=== PATIENT | male | born 1945 | race Caucasian/White ===

== ENCOUNTER 2025-03-14 10:13 | Inpatient (IN) | payer MEDICARE, OTHER ==
[~2025-03-14] VITALS: Ht 175.3 cm; Wt 57.7 kg
[2025-03-14] MEDS: PANTOPRAZOLE 40MG VIAL IV ONE (10:42)
[2025-03-14] MEDS: NS 500 ML IV ONE (10:42)
[2025-03-14 10:55] LABS: BASO # 0.0 10^3/uL (0.0-0.2); BASO % 0.1 % (0.0-1.0); EOS # 0.1 10^3/uL (0.0-0.5); EOS % 0.3 % (0.0-3.0); LYMPH # 1.9 10^3/uL (1.5-5.0); LYMPH % 6.7 % (24.0-44.0); MONO # 1.2 10^3/uL (0.0-0.8); MONO % 4.2 % (2.0-8.0); NEUTROPHILS # 25.0 10^3/uL (1.5-8.5); NEUTROPHILS % 87.8 % (36.0-66.0); PLATELET COUNT, AUTOMATED 385 10^3/uL (150-450)
[2025-03-14 11:14] LABS: ETHYL ALCOHOL (ETHANOL) 0.003 % (0.000-0.010)
[2025-03-14 11:15] LABS: ALT/SGPT 39.0 U/L (7.0-40); AST/SGOT 28.0 U/L (<34); CALCIUM LEVEL 9.6 MG/DL (8.3-10.6); CARBON DIOXIDE LEVEL 19.0 MMOL/L (20-31); CHLORIDE LEVEL 100.0 MMOL/L (98-107); CREATININE FOR GFR 1.88 MG/DL (0.70-1.30); GLOMERULAR FILTRATION RATE 35.9 (>42); POTASSIUM SERUM 5.4 MMOL/L (3.5-5.1); SODIUM LEVEL 133.0 MMOL/L (136-145)
[2025-03-14] MEDS: THIAMINE 100 MG TAB PO SCH (11:26)
[2025-03-14] MEDS: MULTIVITAMINS/MINERALS THERAP 1 TAB PO SCH (11:26)
[2025-03-14] MEDS: FOLIC ACID 1 MG TAB PO SCH (11:26)
[2025-03-14] MEDS ORDERED: ATOR40TA75 PO (11:36)
[2025-03-14] MEDS ORDERED: LEVE750T5 PO (11:36)
[2025-03-14] MEDS ORDERED: AMLO1TAB24 PO (11:36)
[2025-03-14] MEDS ORDERED: HOME MED LIST COMPLETE! XX SCH (11:40)
[2025-03-14] MEDS ORDERED: ISOVUE-370 76% 100 ML VIAL As Ordered ONE (11:43)
[2025-03-14 11:46] LABS: INR 1.06
[2025-03-14] MEDS: cefTRIAXone SOD 2 GM in DEXTROSE 5% (D5W) ADV/MINI-BAG 50 ML IV ONE (12:02)
[2025-03-14] MEDS: LIDOCAINE 2% 5 ML JELLY UROJET TOP ONE (12:10)
[2025-03-14 12:59] LABS: KETONE, URINE AUTO RFX NEGATIVE (NEGATIVE); MUCUS, URINE RFX SMALL (NEGATIVE); NITRITE, URINE AUTO RFX NEGATIVE (NEGATIVE); RBC, URINE AUTO RFX TNTC /HPF (0-3); SQUAM EPITHELIAL CELL UR AURFX 0 /HPF (0-6); URIC ACID CRYSTALS RFX SMALL
[2025-03-14 14:38] LABS: LEUKOCYTE ESTERASE UR AUTO RFX 2+ (NEGATIVE); WBC, URINE AUTO RFX 143 /HPF (0-3)
[2025-03-14] MEDS: NS (Normal Saline) 0.9% 1,000 ML IV SCH (15:12)
[2025-03-14] MEDS ORDERED: LIDOCAINE 2% 100 MG/5 ML SDV (FOR ANES.) As Ordered ONE (15:57)
[2025-03-14] MEDS ORDERED: SUCCINYLCHOLINE 100MG/5ML SYRINGE As Ordered ONE (15:58)
[2025-03-14] MEDS ORDERED: dexAMETHasone 4 MG/ML 1 ML VIAL As Ordered ONE (16:43)
[2025-03-14] MEDS ORDERED: ONDANSETRON 4MG/2ML VIAL As Ordered ONE (16:43)
[2025-03-14 20:23] VITALS: BP 134/66; TEMP 98.2; O2SAT 97
[2025-03-14] MEDS: PANTOPRAZOLE 40MG VIAL IV SCH (20:41)
[2025-03-14 21:00] VITALS: BP 124/54; TEMP 97.8; O2SAT 93
[2025-03-14] MEDS ORDERED: THIAMINE 100 MG TAB PO SCH (21:00)
[2025-03-14 21:15] LABS: PLATELET COUNT, AUTOMATED 307 10^3/uL (150-450)
[2025-03-14 21:30] VITALS: BP 128/60; TEMP 97; O2SAT 94
[2025-03-14 21:33] LABS: CALCIUM LEVEL 7.9 MG/DL (8.3-10.6); CARBON DIOXIDE LEVEL 16.0 MMOL/L (20-31); CHLORIDE LEVEL 110.0 MMOL/L (98-107); CREATININE FOR GFR 1.43 MG/DL (0.70-1.30); GLOMERULAR FILTRATION RATE 49.8 (>42); POTASSIUM SERUM 5.2 MMOL/L (3.5-5.1); SODIUM LEVEL 139.0 MMOL/L (136-145)
[2025-03-14 22:30] VITALS: BP 154/60; TEMP 97.8; O2SAT 94
[2025-03-14 23:30] VITALS: BP 126/76; TEMP 97.6; O2SAT 93
[2025-03-15] VITALS (8 sets, daily range): BP systolic 130–167; BP diastolic 60–75; TEMP 97.8–99.4; O2SAT 90–94
[2025-03-15 05:51] LABS: PLATELET COUNT, AUTOMATED 290 10^3/uL (150-450)
[2025-03-15 06:16] LABS: ALT/SGPT 26.0 U/L (7.0-40); AST/SGOT 20.0 U/L (<34); CALCIUM LEVEL 8.2 MG/DL (8.3-10.6); CARBON DIOXIDE LEVEL 17.0 MMOL/L (20-31); CHLORIDE LEVEL 111.0 MMOL/L (98-107); CREATININE FOR GFR 1.42 MG/DL (0.70-1.30); GLOMERULAR FILTRATION RATE 50.3 (>42); POTASSIUM SERUM 4.8 MMOL/L (3.5-5.1); SODIUM LEVEL 139.0 MMOL/L (136-145)
[2025-03-15] MEDS: cefTRIAXone SOD 1 GM in DEXTROSE 5% (D5W) ADV/MINI-BAG 50 ML IV SCH (08:03)
[2025-03-15] MEDS: ATORVASTATIN 20 MG TAB PO SCH (08:03)
[2025-03-15] MEDS ORDERED: MULTIVITAMINS/MINERALS THERAP 1 TAB PO SCH (09:00)
[2025-03-15] MEDS ORDERED: FOLIC ACID 1 MG TAB PO SCH (09:00)
[2025-03-15] MEDS: TAMSULOSIN 0.4 MG CAP PO ONE (16:27)
[2025-03-16 04:28] VITALS: BP 135/68; TEMP 97.3; O2SAT 96
[2025-03-16 06:04] LABS: PLATELET COUNT, AUTOMATED 284 10^3/uL (150-450)
[2025-03-16 06:29] LABS: ALT/SGPT 28 U/L (7.0-40); AST/SGOT 40 U/L (<34); CALCIUM LEVEL 8.1 MG/DL (8.3-10.6); CARBON DIOXIDE LEVEL 20 MMOL/L (20-31); CHLORIDE LEVEL 117 MMOL/L (98-107); CREATININE FOR GFR 0.78 MG/DL (0.70-1.30); GLOMERULAR FILTRATION RATE > 90.0 (>42); POTASSIUM SERUM 3.4 MMOL/L (3.5-5.1); SODIUM LEVEL 149 MMOL/L (136-145)
[2025-03-16 06:56] LABS: MAGNESIUM LEVEL 2.1 MG/DL (1.8-2.4)
[2025-03-16] MEDS: POTASSIUM CHLORIDE 10% LIQ 20MEQ/15ML UDC PO ONE (07:05)
[2025-03-16 07:19] VITALS: BP 142/65; TEMP 98.2; O2SAT 94
[2025-03-16] MEDS: TAMSULOSIN 0.4 MG CAP PO SCH (08:03)
[2025-03-16] MEDS: ENOXAPARIN 40 MG/0.4 ML SYRINGE (J1650 PER 10MG) SC ONE (10:40)
[2025-03-16] MEDS: ASPIRIN 81 MG CHEWABLE TABLET PO ONE (10:40)
[2025-03-16] MEDS: POTASSIUM CHLORIDE 10MEQ SR TABLET PO ONE (10:41)
[2025-03-16 12:00] VITALS: BP 159/72; TEMP 98.1; O2SAT 96
[2025-03-16] MEDS ORDERED: IPRATROPIUM 0.5 MG/ALBUTEROL 2.5 MG INH SOL UD 3 ML NEB PRN (12:40)
[2025-03-16] MEDS: AZITHROMYCIN 250 MG TABLET PO SCH (13:26)
[2025-03-16 15:40] VITALS: BP 150/60; TEMP 99.1; O2SAT 91
[2025-03-16] MEDS: IPRATROPIUM 0.5 MG/ALBUTEROL 2.5 MG INH SOL UD 3 ML NEB SCH (15:47)
[2025-03-16] MEDS: SODIUM CHLORIDE HYPERTONIC 3% 4ML NEB SOL INH SCH (15:47)
[2025-03-16] MEDS: METOPROLOL TART 25 MG TABLET PO ONE (18:41)
[2025-03-16] MEDS: NS (Normal Saline) 0.9% 1,000 ML IV ONE (18:42)
[2025-03-16 18:59] LABS: CALCIUM LEVEL 7.9 MG/DL (8.3-10.6); CARBON DIOXIDE LEVEL 19 MMOL/L (20-31); CHLORIDE LEVEL 116 MMOL/L (98-107); CREATININE FOR GFR 0.73 MG/DL (0.70-1.30); GLOMERULAR FILTRATION RATE > 90.0 (>42); POTASSIUM SERUM 4.3 MMOL/L (3.5-5.1); SODIUM LEVEL 147 MMOL/L (136-145)
[2025-03-16 19:32] VITALS: BP 145/66; TEMP 98.5; O2SAT 96
[2025-03-16] MEDS: guaiFENesin ER TABLET 600 MG TAB PO SCH (20:28)
[2025-03-16 23:55] VITALS: BP 122/55; TEMP 98.6; O2SAT 90
[2025-03-17] VITALS (13 sets, daily range): BP systolic 111–149; BP diastolic 54–74; TEMP 97.9–99.9; O2SAT 90–96
[2025-03-17 07:27] LABS: PLATELET COUNT, AUTOMATED 294 10^3/uL (150-450)
[2025-03-17 07:52] LABS: ALT/SGPT 40 U/L (7.0-40); AST/SGOT 116 U/L (<34); CALCIUM LEVEL 7.4 MG/DL (8.3-10.6); CARBON DIOXIDE LEVEL 20 MMOL/L (20-31); CHLORIDE LEVEL 115 MMOL/L (98-107); CREATININE FOR GFR 0.64 MG/DL (0.70-1.30); GLOMERULAR FILTRATION RATE > 90.0 (>42); POTASSIUM SERUM 3.6 MMOL/L (3.5-5.1); SODIUM LEVEL 145 MMOL/L (136-145)
[2025-03-17] MEDS: ENOXAPARIN 40 MG/0.4 ML SYRINGE (J1650 PER 10MG) SC SCH (09:24)
[2025-03-17] MEDS: ASPIRIN 81 MG CHEWABLE TABLET PEG SCH (09:25)
[2025-03-17] MEDS: POTASSIUM CHLORIDE 10MEQ SR TABLET PO ONE (09:47)
[2025-03-17] MEDS: METOPROLOL TART 25 MG TABLET PO ONE (10:26)
[2025-03-17] MEDS: ACETAMINOPHEN 325 MG TAB PO PRN (14:36)
[2025-03-17] MEDS: FUROSEMIDE 20 MG/2 ML VIAL IV ONE (15:48)
[2025-03-17 16:04] LABS: BASO # 0.0 10^3/uL (0.0-0.2); BASO % 0.2 % (0.0-1.0); EOS # 0.1 10^3/uL (0.0-0.5); EOS % 1.0 % (0.0-3.0); LYMPH # 1.7 10^3/uL (1.5-5.0); LYMPH % 12.1 % (24.0-44.0); MONO # 1.0 10^3/uL (0.0-0.8); MONO % 7.2 % (2.0-8.0); NEUTROPHILS # 11.1 10^3/uL (1.5-8.5); NEUTROPHILS % 78.1 % (36.0-66.0); PLATELET COUNT, AUTOMATED 250 10^3/uL (150-450)
[2025-03-17] MEDS: MIRALAX *UNIT DOSE* 17 GM PACKET PO ONE (18:40)
[2025-03-17] MEDS: METOPROLOL TART 25 MG TABLET PO SCH (20:36)
[2025-03-18 03:51] VITALS: BP 152/72; TEMP 100; O2SAT 93
[2025-03-18 04:00] VITALS: TEMP 100.3
[2025-03-18 05:56] LABS: PLATELET COUNT, AUTOMATED 297 10^3/uL (150-450)
[2025-03-18 06:29] LABS: ALT/SGPT 50 U/L (7.0-40); AST/SGOT 153 U/L (<34); CALCIUM LEVEL 7.5 MG/DL (8.3-10.6); CARBON DIOXIDE LEVEL 22 MMOL/L (20-31); CHLORIDE LEVEL 111 MMOL/L (98-107); CREATININE FOR GFR 0.65 MG/DL (0.70-1.30); GLOMERULAR FILTRATION RATE > 90.0 (>42); POTASSIUM SERUM 3.4 MMOL/L (3.5-5.1); SODIUM LEVEL 145 MMOL/L (136-145)
[2025-03-18 08:07] VITALS: BP 146/74; TEMP 98.9; O2SAT 98
[2025-03-18] MEDS: POTASSIUM CHLORIDE 10MEQ SR TABLET PO ONE (08:33)
[2025-03-18 12:00] VITALS: BP 101/54; TEMP 98.1; O2SAT 96
[2025-03-18 16:44] VITALS: BP 158/70; TEMP 99; O2SAT 91
[2025-03-18] MEDS: SUCRALFATE SUSP 1GM/10ML UD PO SCH (17:47)
[2025-03-18 19:40] VITALS: BP 109/53; TEMP 98.8; O2SAT 90
[2025-03-19] VITALS (7 sets, daily range): BP systolic 117–150; BP diastolic 59–66; TEMP 98.3–100.2; O2SAT 90–94
[2025-03-19 06:22] LABS: ALT/SGPT 53 U/L (7.0-40); AST/SGOT 131 U/L (<34); CALCIUM LEVEL 7.8 MG/DL (8.3-10.6); CARBON DIOXIDE LEVEL 23 MMOL/L (20-31); CHLORIDE LEVEL 111 MMOL/L (98-107); CREATININE FOR GFR 0.65 MG/DL (0.70-1.30); GLOMERULAR FILTRATION RATE > 90.0 (>42); POTASSIUM SERUM 3.8 MMOL/L (3.5-5.1); SODIUM LEVEL 143 MMOL/L (136-145)
[2025-03-19 06:30] LABS: PLATELET COUNT, AUTOMATED 317 10^3/uL (150-450)
[2025-03-19] MEDS: AUGMENTIN 875 MG TAB PO SCH (09:51)
[2025-03-19] MEDS ORDERED: METO37.5 PO (23:09)
[2025-03-19] MEDS ORDERED: ENOX40IN3 SC (23:09)
[2025-03-19] MEDS ORDERED: PROT1TAB2 PO (23:09)
[2025-03-19] MEDS ORDERED: SUCR1ORA20 PO (23:09)
[2025-03-19] MEDS ORDERED: TAMS1CAP17 PO (23:09)
[2025-03-19] MEDS ORDERED: IPRA0.00 NEB (23:09)
[2025-03-19] MEDS ORDERED: ASPI81CH8 PEG (23:09)
[2025-03-19] MEDS ORDERED: AMOX875T2 PO (23:09)
[2025-03-19] MEDS ORDERED: ACET32TAB PO (23:09)
[2025-03-20 04:55] VITALS: BP 134/61; TEMP 98.5; O2SAT 90
[2025-03-20 05:07] LABS: PLATELET COUNT, AUTOMATED 346 10^3/uL (150-450)
[2025-03-20 05:26] LABS: ALT/SGPT 64 U/L (7.0-40); AST/SGOT 117 U/L (<34); CALCIUM LEVEL 7.8 MG/DL (8.3-10.6); CARBON DIOXIDE LEVEL 23 MMOL/L (20-31); CHLORIDE LEVEL 113 MMOL/L (98-107); CREATININE FOR GFR 0.63 MG/DL (0.70-1.30); GLOMERULAR FILTRATION RATE > 90.0 (>42); POTASSIUM SERUM 3.7 MMOL/L (3.5-5.1); SODIUM LEVEL 146 MMOL/L (136-145)
[2025-03-20 06:54] VITALS: BP 130/62; TEMP 98.9; O2SAT 90
[2025-03-20 08:45] VITALS: BP 136/67
[2025-03-20 08:52] VITALS: BP 133/60
[2025-03-20] MEDS: METOPROLOL TART 12.5 MG PER 1/2 TAB PO SCH (08:52)
== END 2025-03-20 11:12 | DRG 377 ==
LOC: EDBD 10:13 → M ED 10:13 → M ED INP 13:59 → M PCU 20:13
PROVIDERS: ADMIT Internal Medicine; ATTEND Internal Medicine
PROC: 0DB68ZX Excision of Stomach, Via Natural or Artificial Opening Endoscopic, Diagnostic (ICD-10-PCS; 2025-03-14)
PROC: 0W3P8ZZ Control Bleeding in Gastrointestinal Tract, Via Natural or Artificial Opening Endoscopic (ICD-10-PCS; principal; 2025-03-14 16:00)
PROC: B246ZZZ Ultrasonography of Right and Left Heart (ICD-10-PCS; 2025-03-17)
PROC: 30233N1 Transfusion of Nonautologous Red Blood Cells into Peripheral Vein, Percutaneous Approach (ICD-10-PCS; 2025-03-17)
DX: K26.4 Chronic or unspecified duodenal ulcer with hemorrhage (principal); J15.69 Pneumonia due to other Gram-negative bacteria; D62 Acute posthemorrhagic anemia; N17.9 Acute kidney failure, unspecified; E87.20 Acidosis, unspecified; N39.0 Urinary tract infection, site not specified; F03.90 Unspecified dementia, unspecified severity, without behavioral disturbance, psychotic disturbance, mood disturbance, and anxiety; I73.9 Peripheral vascular disease, unspecified; G40.909 Epilepsy, unspecified, not intractable, without status epilepticus; R33.9 Retention of urine, unspecified; R31.0 Gross hematuria; E87.5 Hyperkalemia; K21.00 Gastro-esophageal reflux disease with esophagitis, without bleeding; N32.3 Diverticulum of bladder; B96.89 Other specified bacterial agents as the cause of diseases classified elsewhere; R13.10 Dysphagia, unspecified; Z98.62 Peripheral vascular angioplasty status; Z79.899 Other long term (current) drug therapy

== ENCOUNTER 2025-03-20 10:28 | Inpatient (IN) | payer MEDICARE, OTHER ==
[~2025-03-20] VITALS: Ht 175.3 cm; Wt 53.9 kg
[~2025-03-20 10:28] MED LIST: ACET32TAB PO; AMLO1TAB24 PO; AMOX875T2 PO; ASPI81CH8 PEG; ATOR40TA75 PO; ENOX40IN3 SC; IPRA0.00 NEB; LEVE750T5 PO; METO37.5 PO; PROT1TAB2 PO; SUCR1ORA20 PO; TAMS1CAP17 PO
[2025-03-20 11:15] VITALS: BP 116/59; TEMP 98.9; O2SAT 91
[2025-03-20] MEDS: SUCRALFATE SUSP 1GM/10ML UD PO SCH ×2 (13:06→17:36)
[2025-03-20] MEDS ORDERED: REMEDY PHYTOPLEX Z-GUARD PASTE 113GM TUBE (FROM STOREROOM PRODUCT) TOP PRN (14:15)
[2025-03-20] MEDS ORDERED: ONDANSETRON 4MG ORAL DISINTEGRATING TAB PO PRN (14:15)
[2025-03-20] MEDS ORDERED: IPRATROPIUM 0.5 MG/ALBUTEROL 2.5 MG INH SOL UD 3 ML NEB PRN (14:15)
[2025-03-20] MEDS ORDERED: PILL CUTTER 1 EACH XX PRN (14:50)
[2025-03-20] MEDS: IPRATROPIUM 0.5 MG/ALBUTEROL 2.5 MG INH SOL UD 3 ML NEB SCH (15:28)
[2025-03-20] MEDS ORDERED: SUCRALFATE 1 GM TAB PO SCH (17:30)
[2025-03-20 20:00] VITALS: BP 118/56; TEMP 98.7; O2SAT 91
[2025-03-20] MEDS: AUGMENTIN 875 MG TAB PO SCH (20:47)
[2025-03-20] MEDS: PANTOPRAZOLE 40MG TAB PO SCH (20:48)
[2025-03-20] MEDS: guaiFENesin ER TABLET 600 MG TAB PO SCH (20:48)
[2025-03-20] MEDS: METOPROLOL SUCC. 25 MG *XL* TAB PO SCH (20:49)
[2025-03-21 04:00] VITALS: BP 124/59; TEMP 98.4; O2SAT 90
[2025-03-21 06:46] LABS: BASO # 0.1 10^3/uL (0.0-0.2); BASO % 0.4 % (0.0-1.0); EOS # 0.3 10^3/uL (0.0-0.5); EOS % 2.6 % (0.0-3.0); LYMPH # 2.1 10^3/uL (1.5-5.0); LYMPH % 18.1 % (24.0-44.0); MONO # 1.1 10^3/uL (0.0-0.8); MONO % 9.4 % (2.0-8.0); NEUTROPHILS # 8.0 10^3/uL (1.5-8.5); NEUTROPHILS % 68.2 % (36.0-66.0); PLATELET COUNT, AUTOMATED 342 10^3/uL (150-450)
[2025-03-21 07:06] LABS: ALT/SGPT 84 U/L (7.0-40); AST/SGOT 116 U/L (<34); CALCIUM LEVEL 8.0 MG/DL (8.3-10.6); CARBON DIOXIDE LEVEL 24 MMOL/L (20-31); CHLORIDE LEVEL 110 MMOL/L (98-107); CREATININE FOR GFR 0.61 MG/DL (0.70-1.30); GLOMERULAR FILTRATION RATE > 90.0 (>42); POTASSIUM SERUM 3.7 MMOL/L (3.5-5.1); SODIUM LEVEL 145 MMOL/L (136-145)
[2025-03-21] MEDS: ENOXAPARIN 40 MG/0.4 ML SYRINGE (J1650 PER 10MG) SC SCH (08:16)
[2025-03-21] MEDS: TAMSULOSIN 0.4 MG CAP PO SCH (08:18)
[2025-03-21] MEDS: ASPIRIN 81 MG ENTERIC TABLET PO SCH (08:19)
[2025-03-21] MEDS: ATORVASTATIN 20 MG TAB PO SCH (08:20)
[2025-03-21 12:15] VITALS: BP 113/57; TEMP 96.4; O2SAT 96
[2025-03-21] MEDS: REMEDY PHYTOPLEX Z-GUARD PASTE 113GM TUBE (FROM STOREROOM PRODUCT) TOP SCH (12:34)
[2025-03-21 20:00] VITALS: BP 103/51; TEMP 98.2; O2SAT 94
[2025-03-21] MEDS: TRIAMCINOLONE ACET 0.1% CREAM 15GM TOP SCH (20:42)
[2025-03-22] MEDS: ACETAMINOPHEN 325 MG TAB PO PRN (03:43)
[2025-03-22 04:00] VITALS: BP 134/60; TEMP 100.6; O2SAT 92
[2025-03-22 05:17] VITALS: TEMP 98.9
[2025-03-22 12:00] VITALS: BP 112/66; TEMP 97.4; O2SAT 93
[2025-03-22 19:34] VITALS: BP 118/56; TEMP 97.9; O2SAT 92
[2025-03-22] MEDS: RAMELTEON 8 MG TAB PO PRN (21:58)
[2025-03-23 04:00] VITALS: BP 120/56; TEMP 98.9; O2SAT 89
[2025-03-23 07:45] LABS: BASO # 0.1 10^3/uL (0.0-0.2); BASO % 0.5 % (0.0-1.0); EOS # 0.3 10^3/uL (0.0-0.5); EOS % 3.0 % (0.0-3.0); LYMPH # 2.0 10^3/uL (1.5-5.0); LYMPH % 20.0 % (24.0-44.0); MONO # 0.8 10^3/uL (0.0-0.8); MONO % 7.7 % (2.0-8.0); NEUTROPHILS # 6.7 10^3/uL (1.5-8.5); NEUTROPHILS % 67.4 % (36.0-66.0); PLATELET COUNT, AUTOMATED 378 10^3/uL (150-450)
[2025-03-23 08:09] LABS: CALCIUM LEVEL 7.9 MG/DL (8.3-10.6); CARBON DIOXIDE LEVEL 24 MMOL/L (20-31); CHLORIDE LEVEL 112 MMOL/L (98-107); CREATININE FOR GFR 0.60 MG/DL (0.70-1.30); GLOMERULAR FILTRATION RATE > 90.0 (>42); POTASSIUM SERUM 3.8 MMOL/L (3.5-5.1); SODIUM LEVEL 145 MMOL/L (136-145)
[2025-03-23 08:40] VITALS: BP 98/51
[2025-03-23 12:00] VITALS: BP 102/52; TEMP 98; O2SAT 94
[2025-03-23 20:00] VITALS: BP 119/59; TEMP 98.5; O2SAT 92
[2025-03-24 04:00] VITALS: BP 118/56; TEMP 97.9; O2SAT 91
[2025-03-24 08:04] VITALS: BP 100/52
[2025-03-24 12:00] VITALS: BP 111/54; TEMP 97.3; O2SAT 95
[2025-03-24 20:00] VITALS: BP 119/58; TEMP 98.6; O2SAT 94
[2025-03-25 04:00] VITALS: BP 124/59; TEMP 97.8; O2SAT 91
[2025-03-25 12:00] VITALS: BP 137/59; TEMP 97.2; O2SAT 95
[2025-03-25 20:00] VITALS: BP 129/60; TEMP 97.9; O2SAT 92
[2025-03-26 04:00] VITALS: BP 147/74; TEMP 98.3; O2SAT 90
[2025-03-26 12:00] VITALS: BP 139/62; TEMP 98.1; O2SAT 96
[2025-03-26 20:00] VITALS: BP 127/66; TEMP 97.1; O2SAT 93
[2025-03-27 04:00] VITALS: BP 100/53; TEMP 97.1; O2SAT 94
[2025-03-27 12:00] VITALS: BP 109/51; TEMP 97.8; O2SAT 93
[2025-03-27 12:54] LABS: BASO # 0.1 10^3/uL (0.0-0.2); BASO % 0.7 % (0.0-1.0); EOS # 0.2 10^3/uL (0.0-0.5); EOS % 1.8 % (0.0-3.0); LYMPH # 2.6 10^3/uL (1.5-5.0); LYMPH % 28.4 % (24.0-44.0); MONO # 0.5 10^3/uL (0.0-0.8); MONO % 5.9 % (2.0-8.0); NEUTROPHILS # 5.6 10^3/uL (1.5-8.5); NEUTROPHILS % 61.0 % (36.0-66.0); PLATELET COUNT, AUTOMATED 460 10^3/uL (150-450)
[2025-03-27 13:13] LABS: ALT/SGPT 66 U/L (7.0-40); AST/SGOT 39 U/L (<34); CALCIUM LEVEL 8.5 MG/DL (8.3-10.6); CARBON DIOXIDE LEVEL 27 MMOL/L (20-31); CHLORIDE LEVEL 108 MMOL/L (98-107); CREATININE FOR GFR 0.60 MG/DL (0.70-1.30); GLOMERULAR FILTRATION RATE > 90.0 (>42); POTASSIUM SERUM 4.3 MMOL/L (3.5-5.1); SODIUM LEVEL 144 MMOL/L (136-145)
[2025-03-27 20:00] VITALS: BP 116/58; TEMP 98.3; O2SAT 92
[2025-03-28] VITALS (9 sets, daily range): BP systolic 104–154; BP diastolic 53–86; TEMP 97–98.8; O2SAT 90–94
[2025-03-28 08:55] LABS: PLATELET COUNT, AUTOMATED 469 10^3/uL (150-450)
[2025-03-28 09:12] LABS: IRON (FE) 43.0 UG/DL (65-175); PERCENT SATURATION 21.6 % (19.7-50.0)
[2025-03-28] MEDS ORDERED: NS (Normal Saline) 0.9% 1,000 ML IV SCH (10:10)
[2025-03-29] VITALS (12 sets, daily range): BP systolic 108–164; BP diastolic 58–78; TEMP 97.1–98.3; O2SAT 92–95
[2025-03-29] MEDS: LR 1,000 ML IV SCH (01:51)
[2025-03-29 08:55] LABS: PLATELET COUNT, AUTOMATED 447 10^3/uL (150-450)
[2025-03-29] MEDS ORDERED: LIDOCAINE 2% 100 MG/5 ML SDV (FOR ANES.) As Ordered ONE (15:01)
[2025-03-29] MEDS: EPINEPHrine 1 MG/10 ML SYRINGE 1.5IN As Ordered ONE (15:44)
[2025-03-29] MEDS ORDERED: ONDANSETRON 4MG/2ML VIAL IV PRN (15:45)
[2025-03-29] MEDS ORDERED: LR 1,000 ML IV SCH (15:45)
[2025-03-30 01:30] VITALS: BP 133/64; TEMP 98.3; O2SAT 92
[2025-03-30 05:22] VITALS: BP 132/60; TEMP 98.9; O2SAT 94
[2025-03-30 12:00] VITALS: BP 139/64; TEMP 98.6; O2SAT 98
[2025-03-30 20:00] VITALS: BP 116/56; TEMP 97.7; O2SAT 94
[2025-03-31 04:00] VITALS: BP 128/74; TEMP 98.1; O2SAT 96
[2025-03-31 12:00] VITALS: BP 117/58; TEMP 97.9; O2SAT 97
[2025-03-31 20:02] VITALS: BP 104/56; TEMP 98.4; O2SAT 93
[2025-04-01 04:00] VITALS: BP 102/50; TEMP 97.7; O2SAT 94
[2025-04-01 08:02] VITALS: BP 90/50
[2025-04-01 09:35] LABS: PLATELET COUNT, AUTOMATED 483 10^3/uL (150-450)
[2025-04-01 12:00] VITALS: BP 95/52; TEMP 97.9; O2SAT 96
[2025-04-01] MEDS ORDERED: RAME8TAB2 PO (14:35)
[2025-04-01] MEDS ORDERED: Zinc Oxide/Petrolatum,White TOP (14:35)
[2025-04-01] MEDS ORDERED: TAMS1CAP17 PO (14:35)
[2025-04-01] MEDS ORDERED: ASPI81TAEC PO (14:35)
[2025-04-01] MEDS ORDERED: SUCR1ORA20 PO (14:35)
[2025-04-01] MEDS ORDERED: PANT40TA29 PO (14:35)
[2025-04-01] MEDS ORDERED: COMBAER6 INH (14:35)
[2025-04-01] MEDS ORDERED: METO1TAB32 PO (14:35)
[2025-04-01] MEDS ORDERED: MUCI600T31 PO (14:35)
[2025-04-09] MEDS ORDERED: CVS13CRE TOP (09:28)
[2025-04-09] MEDS ORDERED: COMBAER6 INH (09:28)
[2025-04-09] MEDS ORDERED: MUCI600T31 PO (09:28)
[2025-04-09] MEDS ORDERED: TAMS1CAP17 PO (09:28)
[2025-04-09] MEDS ORDERED: ASPI81TA26 PO (09:28)
[2025-04-09] MEDS ORDERED: SUCR1ORA20 PO (09:28)
[2025-04-09] MEDS ORDERED: METO1TAB32 PO (09:28)
[2025-04-09] MEDS ORDERED: PANT40TA29 PO (09:28)
[2025-04-09] MEDS ORDERED: ROZE8TAB16 PO (09:28)
== END 2025-04-01 15:12 | disposition home health service (06) | DRG 556 ==
LOC: M PM&R 11:14
PROVIDERS: ADMIT Physical Medicine & Rehabilitation; ATTEND Physical Medicine & Rehabilitation
PROC: 0DB68ZX Excision of Stomach, Via Natural or Artificial Opening Endoscopic, Diagnostic (ICD-10-PCS; principal; 2025-03-29 14:15)
DX: R26.2 Difficulty in walking, not elsewhere classified (principal); D62 Acute posthemorrhagic anemia; K92.1 Melena; R53.1 Weakness; R13.10 Dysphagia, unspecified; F03.90 Unspecified dementia, unspecified severity, without behavioral disturbance, psychotic disturbance, mood disturbance, and anxiety; I70.221 Atherosclerosis of native arteries of extremities with rest pain, right leg; K26.9 Duodenal ulcer, unspecified as acute or chronic, without hemorrhage or perforation; G40.909 Epilepsy, unspecified, not intractable, without status epilepticus; I70.202 Unspecified atherosclerosis of native arteries of extremities, left leg; R33.9 Retention of urine, unspecified; K20.90 Esophagitis, unspecified without bleeding; R53.81 Other malaise; G47.00 Insomnia, unspecified; I48.91 Unspecified atrial fibrillation; I69.391 Dysphagia following cerebral infarction; Z74.09 Other reduced mobility; Z74.1 Need for assistance with personal care; Z79.82 Long term (current) use of aspirin; Z79.899 Other long term (current) drug therapy; Z98.62 Peripheral vascular angioplasty status